=== PATIENT | male | born 1960 | race Caucasian/White ===

== ENCOUNTER → 2019-10-16 | Outpatient (REF) | payer OTHER ==
[2019-10-16 15:49] LABS: PLATELET COUNT, AUTOMATED 238 10^3/uL (150-450)
[2019-10-16 15:59] LABS: INR 0.98; PARTIAL THROMBOPLASTIN TIME 31.8 SECONDS (25.0-38.4); PROTHROMBIN TIME 12.7 SECONDS (11.8-14.0)
[2019-10-16 16:00] LABS: COLLAGEN EPINEPHRINE 94 SECONDS (74-162)
== END ==
LOC: M LABDRAW1 15:24
PROVIDERS: ATTEND Physical Medicine & Rehabilitation
DX: Z01.812 Encounter for preprocedural laboratory examination (principal)

== ENCOUNTER → 2020-12-10 | Outpatient (CLI) | payer OTHER ==
--- NOTE | 2020-12-11 15:31 | SLEEPHOME ---
DIAGNOSTIC HOME SLEEP STUDY DATE: 12/10/2020 ORDERED BY: NILA Barton Diagnostic home sleep testing was performed due to concern for the obstructive sleep apnea syndrome. For testing, a nocturnal T3 respiratory monitoring device was used. Continuous record was made of pulse, oxygen saturation, air flow, chest and abdominal strain, and body position. 9 hours and 59 minutes of data were reviewed. There were 7 hours and 57 minutes marked as time in bed. During the interval marked time in bed, there were 409 respiratory events identified of 10 seconds in duration or greater for a respiratory event index 51.4. The events were primarily obstructive, but 100 mixed and central apneas were also seen. Baseline pulse rate 75. Pulse rate range 58 to 115. Baseline saturation was 92% and lowest oxygen saturation 79%. Testing was performed in both the supine and non-supine positions. IMPRESSION: Abnormal home sleep testing with repetitive respiratory events and oxygen desaturations to 79% with a respiratory event index of 51.4 is consistent with the obstructive sleep apnea syndrome. RECOMMENDATION: The patient should be encouraged to undergo formal sleep evaluation and in-laboratory pressure titration. Given the frequency of central events BiLevel device and backup rate may be necessary. Rasta Landry M.D. Trinity Norman M.D.
== END ==
LOC: M SLEEP HO 09:17
PROVIDERS: ATTEND Nurse Practitioner Family
DX: G47.30 Sleep apnea, unspecified (principal)

== ENCOUNTER → 2021-02-13 | Outpatient (CLI) | payer OTHER ==
--- NOTE | 2021-02-16 13:53 | SLEEPCENT ---
NOCTURNAL POLYSOMNOGRAPHY CPAP TITRATION DATE: 02/13/2021 ORDERED BY: NILA Batron Nocturnal polysomnography was performed for the titration of pressure therapy in this patient with a clinical diagnosis of obstructive sleep apnea, confirmed by home testing revealing a respiratory event index of 51.4. For testing a ResMed Quattro full face mask of medium size was used, 5 cm of water pressure were applied to the circuit, and the lights were extinguished. 8 hours and 14 minutes of data were reviewed. There were 428 minutes of sleep identified. Sleep latency was mildly prolonged at 33.5 minutes. REM latency was also mildly prolonged at 145 minutes. Sleep architecture improved with optimal pressure therapy and there were two to three REM cycles. Overall sleep efficiency was 87.4%. The electrocardiogram showed a sinus rhythm with an average heart rate of 80 beats per minute. EEG showed normal waveforms for wake and sleep. Respiratory events were best palliated with CPAP at a pressure of 11. Limb activity was quite prominent during the study. Limb movement arousal index was only 3.8. IMPRESSION: Obstructive sleep apnea syndrome (G47.33). RECOMMENDATION: Nightly use of pressure therapy 11 cm of water.
== END ==
LOC: M SLEEP 20:00
PROVIDERS: ATTEND Nurse Practitioner Family
DX: G47.33 Obstructive sleep apnea (adult) (pediatric) (principal)